=== PATIENT | male | born 1945 | race Caucasian/White ===

== ENCOUNTER 2018-06-03 04:41 | Emergency (ER) | payer OTHER ==
[~2018-06-03] VITALS: Ht 180.3 cm; Wt 68.5 kg
[~2018-06-03 04:41] MED LIST: AMARYL; ATIVAN1 MG PO; AVALIDE 150-12.1 TA1 PO; AVANDARYL 4 MG-1 TA2 PO; CIPRO500 MG PO; CRESTOR20 MG PO; FLAGYL500MG PO; INTESTINEX1 CA1 PO; INTESTINEX680 MG PO; JANUVIA100 MG; NEURONTIN300 MG; PRILOSEC OTC20 MG
== END 2018-06-03 10:06 | disposition home or self-care (01) ==
LOC: ER 04:41
DX: R10.13 Epigastric pain (principal)

== ENCOUNTER 2018-07-28 21:50 | Emergency (ER) | payer OTHER ==
[~2018-07-28] VITALS: Ht 180.3 cm; Wt 64.0 kg
[2018-07-29] MEDS ORDERED: LEVSIN/SL0.125 MG SL (02:28)
[2018-07-29] MEDS ORDERED: ZOFRAN4 MG PO (02:28)
== END 2018-07-29 02:30 | disposition home or self-care (01) ==
LOC: ER 21:50
DX: R10.84 Generalized abdominal pain (principal)

== ENCOUNTER 2018-08-19 09:30 | Outpatient (CLI) | payer OTHER ==
[~2018-08-19 09:30] MED LIST changes: +LEVSIN/SL0.125 MG SL; +ZOFRAN4 MG PO
== END 2018-08-19 09:34 | disposition home or self-care (01) ==
LOC: NUCLEAR 09:30
DX: I42.9 Cardiomyopathy, unspecified (principal)

== ENCOUNTER 2020-03-08 08:34 | Outpatient (CLI) | payer OTHER | END 2020-03-08 08:42 | disposition home or self-care (01) | LOC: SONOGRAMA 08:34 | PROVIDERS: ATTEND Pathology Anatomic Pathology & Clinical Pathology | DX: E04.2 Nontoxic multinodular goiter (principal); E07.89 Other specified disorders of thyroid; E04.1 Nontoxic single thyroid nodule; E06.5 Other chronic thyroiditis; D34 Benign neoplasm of thyroid gland ==